=== PATIENT | female | born 1960 | race Caucasian/White ===

== ENCOUNTER 2023-08-16 16:46 | Emergency (ER) | payer OTHER ==
[~2023-08-16] VITALS: Ht 157.5 cm; Wt 62.7 kg
[2023-08-16 19:53] VITALS: BP 145/68; PULSE 75; RESP 17; O2SAT 98
[2023-08-16] MEDS ORDERED: IBUPROFEN 800 MG TAB PO ONE (20:00)
[2023-08-16] MEDS ORDERED: IBUP-2077 PO (20:40)
== END 2023-08-16 20:50 | disposition home or self-care (01) ==
LOC: EDH 16:46
DX: S40.011A Contusion of right shoulder, initial encounter (principal); S50.01XA Contusion of right elbow, initial encounter; I10 Essential (primary) hypertension; E78.00 Pure hypercholesterolemia, unspecified; F41.9 Anxiety disorder, unspecified; F17.200 Nicotine dependence, unspecified, uncomplicated; Z90.49 Acquired absence of other specified parts of digestive tract; Z90.710 Acquired absence of both cervix and uterus; Z98.890 Other specified postprocedural states; Y08.89XA Assault by other specified means, initial encounter; Y93.89 Activity, other specified; Y92.89 Other specified places as the place of occurrence of the external cause; Y99.8 Other external cause status
CPT/HCPCS: 73030; 73070